=== PATIENT | male | born 1970 | race Caucasian/White ===

== ENCOUNTER 2021-04-01 14:18 | Emergency (ER) | payer BC ==
[~2021-04-01] VITALS: Ht 182.9 cm; Wt 100.9 kg
[2021-04-01 15:20] LABS: BASO # 0.03 K/mm3 (0.02-0.10); EOS # 0.65 K/mm3 (0.04-0.40); EOS % 8.8 % (0.0-4.0); HEMATOCRIT 45.8 % (42.0-52.0); HEMOGLOBIN 15.7 g/dL (13.5-18.0); MEAN CELL VOLUME 88 fl (78-100); MEAN CORPUSCULAR HEMOGLOBIN 30 pg (27-31); MEAN CORPUSCULAR HGB CONC 34 g/dL (33-37); MEAN PLATELET VOLUME 9.2 fl (7.4-10.4); MONO # 0.83 K/mm3 (0.20-0.80); NEU # 4.48 K/mm3 (1.40-6.50); PLATELET COUNT 224 K/mm3 (130-400); RED BLOOD COUNT 5.19 M/mm3 (4.20-5.60); RED CELL DISTRIBUTION WIDTH 12.1 % (11.5-14.5); WHITE BLOOD COUNT 7.4 K/mm3 (4.8-10.8)
[2021-04-01 15:32] LABS: ALBUMIN 4.5 g/dL (3.5-5.0)
[2021-04-01 15:33] LABS: POTASSIUM 4.5 mmol/L (3.5-5.1)
[2021-04-01 15:34] LABS: CALCIUM 9.6 mg/dL (8.3-10.5)
[2021-04-01 15:35] LABS: TOTAL PROTEIN 7.3 g/dL (6.4-8.3)
[2021-04-01 15:37] LABS: TOTAL BILIRUBIN 0.6 mg/dL (0.2-1.2)
[2021-04-01] MEDS ORDERED: PREDNISONE20 M1 PO (16:14)
[2021-04-01] MEDS ORDERED: MORGIDOX 1X100100 MG PO (16:14)
[2021-04-01 17:06] VITALS: BP 167/79
== END 2021-04-01 17:08 | disposition home or self-care (01) ==
LOC: ED 14:18
PROVIDERS: Nurse Practitioner
DX: J40 Bronchitis, not specified as acute or chronic (principal); Z20.822 Contact with and (suspected) exposure to COVID-19; Z86.16 Personal history of COVID-19; Z87.01 Personal history of pneumonia (recurrent); Z87.891 Personal history of nicotine dependence